=== PATIENT | male | born 1985 | race African-American/Black ===

== ENCOUNTER 2018-03-21 17:56 | Emergency (ER) | payer SELFPAY ==
[2018-03-21 18:15] VITALS: BP 147/97
--- NOTE | 2018-03-21 18:25 | EDPHY ---
H & P Stated Complaint: SI/HI Time Seen by Provider: 03/21/18 18:24 HPI/ROS: CHIEF COMPLAINT: Homicidal ideation HISTORY OF PRESENT ILLNESS: The patient is homeless and presents to the ED reportedly with homicidal ideation. The patient has a history of schizoaffective disorder and is supposed to be on medications which she has been noncompliant with. The patient is fairly new to [place]. He does report hospitalization at [facility] already once this year. The patient denies any acute complaints of fever, cough, congestion, pain or vomiting. REVIEW OF SYSTEMS: A comprehensive 10 point review of systems is otherwise negative aside from elements mentioned in the history of present illness. Source: Patient Exam Limitations: No limitations - Personal History Current Tetanus/Diphtheria Vaccine: Yes - Medical/Surgical History Hx Asthma: No Hx Chronic Respiratory Disease: No Hx Diabetes: No Hx Cardiac Disease: No Hx Renal Disease: No Hx Cirrhosis: No Hx Alcoholism: No Other PMH: SI - Social History Smoking Status: Heavy smoker - Physical Exam Exam: General Appearance: Alert, no distress, disheveled Eyes: Pupils equal and round no pallor or injection ENT, Mouth: Mucous membranes moist Respiratory: There are no retractions, lungs are clear to auscultation Cardiovascular: Regular rate and rhythm Gastrointestinal: Abdomen is soft and nontender, no masses, bowel sounds normal Neurological: 5/5 strength all 4 extremities Skin: Warm and dry, no rashes Musculoskeletal: Neck is supple nontender Extremities: symmetrical, full range of motion Psychiatric: Patient is oriented X 3, there is no agitation, endorses thoughts of suicide and homicide Constitutional: Initial Vital Signs Temperature (C) 36.4 C 03/21/18 18:13 Heart Rate 106 H 03/21/18 18:13 Respiratory Rate 18 03/21/18 18:13 Blood Pressure 147/97 H 03/21/18 18:13 O2 Sat (%) 96 03/21/18 18:13 O2 Delivery Mode Room Air Allergies/Adverse Reactions: No Known Allergies Allergy (Unverified 03/21/18 18:15) Home Medications: Medication Instructions Recorded NK [No Known Home Meds] 03/21/18 Departure - Departure Condition: Fair Referrals: NONE *PRIMARY CARE P,. [Primary Care Provider] - As per Instructions
[2018-03-21] MEDS ORDERED: OLANZapine DISINTEGR 5 MG TAB PO ONE (18:30)
[2018-03-21 18:53] LABS: PLATELET COUNT 440 10^3/uL (150-400)
--- NOTE | 2018-03-21 20:38 | EDPHY ---
ED Progress Note Narrative: The patient presented to the emergency department with reported suicidal and homicidal ideation. When I initially was informed the patient I was told he was on M1 psychiatric hold. I ordered screening laboratory studies. Apparently the patient was not formally on an M1 psychiatric hold and was allowed to leave the department by the security detail. No one asked me if it was OK for the patient to leave the department.
== END 2018-03-21 20:20 | disposition left against medical advice (07) ==
DX: Z53.21 Procedure and treatment not carried out due to patient leaving prior to being seen by health care provider (principal)
CPT/HCPCS: 80305; G0480